=== PATIENT | male | born 1970 | race Caucasian/White ===

== ENCOUNTER 2016-11-09 11:35 | Observation (INO) | payer BC ==
[~2016-11-09] VITALS: Ht 170.2 cm; Wt 87.2 kg
[2016-11-09] VITALS (10 sets, daily range): BP systolic 100–179; BP diastolic 75–113; PULSE 60–80; RESP 17–20; TEMP 97.1–99.3; O2SAT 95–100
[2016-11-09] MEDS ORDERED: ASPIRIN 81 MG CHEW TAB PO ONE (12:00)
[2016-11-09] MEDS ORDERED: SODIUM CHLORIDE 0.9% FLUSH 10 ML FLUSH IVF PRN (12:00)
[2016-11-09] MEDS ORDERED: SODIUM CHLORID 0.9% 500 ML INJ 500 ML IV ONE (12:00)
[2016-11-09] MEDS: NITROGLYCERIN 0.4 MG SL 25 TABS/BTL SL SCH ×3 (12:10→12:27)
--- NOTE | 2016-11-09 12:32 | RADRPT ---
EXAM DATE/TIME: 11/09/2016 12:14 [place] COMPARISON: No previous studies available for comparison. INDICATIONS : Chest pain and shortness of breath. MEDICAL HISTORY : None. SURGICAL HISTORY : None. ENCOUNTER: Initial ACUITY: 1 day PAIN SCORE: 3/10 LOCATION: Bilateral chest Middle. FINDINGS: A single view of the chest demonstrates the lungs to be symmetrically aerated without evidence of mas s, infiltrate or effusion. The cardiomediastinal contours are unremarkable. Osseous structures are intact. CONCLUSION: No acute disease. Jeffery Brown MD on November 09, 2016 at 12:30 Board Certified Radiologist. This report was verified electronically.
[2016-11-09 12:35] LABS: AUTOMATED NEUTROPHIL # 3.4 TH/MM3 (1.8-7.7); BASOPHIL % 0.6 % (0.0-2.0); EOSINOPHIL # 0.1 TH/MM3 (0-0.4); EOSINOPHIL % 1.5 % (0.0-4.0); HEMATOCRIT 46.5 % (39.0-51.0); HEMO FLAGS DIFF FINAL; LYMPH % 49.7 % (9.0-44.0); LYMPHOCYTE # 4.1 TH/MM3 (1.0-4.8); MEAN CELL VOLUME 88.8 FL (80.0-100.0); MEAN CORPUSCULAR HEMOGLOBIN 30.1 PG (27.0-34.0); MEAN CORPUSCULAR HGB CONC 33.9 % (32.0-36.0); MONO % 6.8 % (0.0-8.0); NEUT % 41.4 % (16.0-70.0); PLATELET COUNT 182 TH/MM3 (150-450); RED BLOOD COUNT 5.24 MIL/MM3 (4.50-5.90); RED CELL DISTRIBUTION WIDTH 12.3 % (11.6-17.2); WHITE BLOOD COUNT 8.2 TH/MM3 (4.0-11.0)
[2016-11-09 12:45] LABS: CHLORIDE 106 MEQ/L (98-107); POTASSIUM 4.3 MEQ/L (3.5-5.1); SODIUM (NA) 139 MEQ/L (136-145)
[2016-11-09 12:49] LABS: ANION GAP 8 MEQ/L (5-15); BICARBONATE 24.8 MEQ/L (21.0-32.0); BLOOD UREA NITROGEN 13 MG/DL (7-18)
[2016-11-09 12:52] LABS: ALT (GPT) 49 U/L (12-78); AST (GOT) 23 U/L (15-37); GLOMERULAR FILTRATION RATE 80 ML/MIN (>89)
[2016-11-09 12:53] LABS: TOTAL BILIRUBIN ADULT 0.3 MG/DL (0.2-1.0)
[2016-11-09 12:55] LABS: ALKALINE PHOSPHATASE 58 U/L (45-117); CREATINE KINASE 115 U/L (39-308)
[2016-11-09 13:08] LABS: CKMB 0.9 NG/ML (0.5-3.6)
--- NOTE | 2016-11-09 13:47 | PD ---
HPI Chief Complaint: Chest Pain Time Seen by Provider: 11:55 Travel History International Travel<30 days: No Contact w/Intl Traveler<30days: No Traveled to known affect area: No History of Present Illness HPI So 46-year-old man who presents to the emergency department complaining of chest pain. States the pain started last night. He been feeling poorly about 2 weeks with shortness of breath and weakness and dizziness. States the pains in the mid chest, constant but actually waned a little bit since last night. Worse with any exertion. Not positional, not pleuritic. She's never had it before. He is a history of diabetes. He is a family history of early heart disease. No tobacco use. History Past Medical History Narrative Medical Diabetes Tetanus Vaccination: > 5 Years Influenza Vaccination: No Social History Alcohol Use: Yes (occassional) Tobacco Use: No Allergies-Medications (Allergen,Severity, Reaction): Coded Allergies: No Known Allergies (Unverified , 11/09/16) Reported Meds & Prescriptions Reported Meds & Active Scripts Active No Active Prescriptions or Reported Medications Review of Systems Except as stated in HPI: all other systems reviewed are Neg Physical Exam Narrative GENERAL: Well-appearing 46-year-old man, no acute distress. SKIN: Focused skin assessment warm/dry. NECK: Trachea midline. No JVD. CARDIOVASCULAR: Regular rate and rhythm. No murmur appreciated. RESPIRATORY: No accessory muscle use. Clear to auscultation. Breath sounds equal bilaterally. GASTROINTESTINAL: Abdomen soft, non-tender, nondistended. Hepatic and splenic margins not palpable. MUSCULOSKELETAL: No obvious deformities. No edema. NEUROLOGICAL: Awake and alert. No obvious cranial nerve deficits. Motor grossly within normal limits. Normal speech. PSYCHIATRIC: Appropriate mood and affect; insight and judgment normal. Data Data Last Documented VS Vital Signs Date Time Temp Pulse Resp B/P Pulse Ox O2 Delivery O2 Flow Rate FiO2 11/09/16 13:28 64 18 136/88 100 Nasal Cannula 2 11/09/16 11:45 98.2 Orders Electrocardiogram (11/09/16 11:56) Ckmb (Isoenzyme) Profile (11/09/16 11:56) Complete Blood Count With Diff (11/09/16 11:56) Comprehensive Metabolic Panel (11/09/16 11:56) Magnesium (Mg) (11/09/16 11:56) Troponin I (11/09/16 11:56) Lipase (11/09/16 11:56) Chest, Single Ap (11/09/16 11:56) Ecg Monitoring (11/09/16 11:56) Bilateral Bp Monitoring (11/09/16 11:56) Iv Access Insert/Monitor (11/09/16 11:56) Oximetry (11/09/16 11:56) Oxygen Administration (11/09/16 11:56) Aspirin Chew (Aspirin Chew) (11/09/16 12:00) Sodium Chloride 0.9% Flush (Ns Flush) (11/09/16 12:00) Nitroglycerin Sl (Nitrostat Sl) (11/09/16 12:00) Sodium Chlorid 0.9% 500 Ml Inj (Ns 500 M (11/09/16 12:00) CKMB (11/09/16 11:40) CKMB% (11/09/16 11:40) Labs Laboratory Tests Test 11/09/16 11:40 White Blood Count 8.2 TH/MM3 Red Blood Count 5.24 MIL/MM3 Hemoglobin 15.8 GM/DL Hematocrit 46.5 % Mean Corpuscular Volume 88.8 FL Mean Corpuscular Hemoglobin 30.1 PG Mean Corpuscular Hemoglobin 33.9 % Concent Red Cell Distribution Width 12.3 % Platelet Count 182 TH/MM3 Mean Platelet Volume 8.4 FL Neutrophils (%) (Auto) 41.4 % Lymphocytes (%) (Auto) 49.7 % Monocytes (%) (Auto) 6.8 % Eosinophils (%) (Auto) 1.5 % Basophils (%) (Auto) 0.6 % Neutrophils # (Auto) 3.4 TH/MM3 Lymphocytes # (Auto) 4.1 TH/MM3 Monocytes # (Auto) 0.6 TH/MM3 Eosinophils # (Auto) 0.1 TH/MM3 Basophils # (Auto) 0.0 TH/MM3 CBC Comment DIFF FINAL Differential Comment Sodium Level 139 MEQ/L Potassium Level 4.3 MEQ/L Chloride Level 106 MEQ/L Carbon Dioxide Level 24.8 MEQ/L Anion Gap 8 MEQ/L Blood Urea Nitrogen 13 MG/DL Creatinine 1.00 MG/DL Estimat Glomerular Filtration 80 ML/MIN Rate Random Glucose 97 MG/DL Calcium Level 8.8 MG/DL Magnesium Level 2.0 MG/DL Total Bilirubin 0.3 MG/DL Aspartate Amino Transf 23 U/L (AST/SGOT) Alanine Aminotransferase 49 U/L (ALT/SGPT) Alkaline Phosphatase 58 U/L Total Creatine Kinase 115 U/L Creatine Kinase MB 0.9 NG/ML Troponin I LESS THAN 0.02 NG/ML Total Protein 7.5 GM/DL Albumin 3.8 GM/DL Lipase 209 U/L MDM Medical Decision Making Medical Screen Exam Complete: Yes Emergency Medical Condition: Yes Interpretation(s) My review of EKG: Normal sinus rhythm at a rate of 69, normal axis, normal, no ischemia. LABS: CBC is unremarkable. CMP is unremarkable. Troponins negative. Lipase is normal. Chest x-ray: No acute disease. Differential Diagnosis ACS, pancreatitis, pleurisy, gastritis, hepatobiliary disease, other Narrative Course Medical decision-making 46 year wom man who presents emergency room complaining of chest pain. Symptoms are exertional in nature. There is no other clear explanation. Doesn' t diabetes. With symptoms strongly suggestive of ischemia, 2 risk factors, age greater than 45, use a heart score 4, moderate risk. I did discuss this with the patient he, while reluctant, is agreeable to stay for chest pain Center evaluation. Diagnosis Primary Impression: Chest pain Admitting Information Admitting Physician Requests: Observation Scripts No Active Prescriptions or Reported Meds Kevin Alarcon MD Nov 09, 2016 13:47
[2016-11-09] MEDS ORDERED: SODIUM CHLORIDE 0.9% FLUSH 10 ML FLUSH IV FLUSH PRN (14:00)
[2016-11-09] MEDS ORDERED: ONDANSETRON HCL 4 MG/2 ML VIAL IV PRN (14:00)
[2016-11-09] MEDS ORDERED: NITROGLYCERIN 0.4 MG SL 25 TABS/BTL SL PRN (14:00)
[2016-11-09] MEDS ORDERED: ACETAMINOPHEN 500 MG CPLT PO PRN (14:00)
[2016-11-09] MEDS ORDERED: MORPHINE SULFATE 4 MG/ML INJ IV PRN (14:00)
--- NOTE | 2016-11-09 14:35 | HHI.HP ---
[facility] No Primary Care Physician Admission Diagnosis chest pain Diagnoses: (1) Chest pain Diagnosis: Principal (2) ABERNATHY (dyspnea on exertion) Diagnosis: Principal (3) HTN (hypertension) Diagnosis: Principal Chief Complaint: chest pain, SOB History of Present Illness Written by Charlee Quinones PA-C acting as scribe for Dr. Rai on 11/09/16 at 1415. 46-year-old male with history of diet-controlled diabetes presents with complaint of chest pain and shortness of breath. Patient states he hasn't been feeling well for the past 2 weeks. He has had exertional shortness of breath with sweating and hot flashes.He states he had sweating and weakness last night and intense chest pain rating it an 8/10 at that time and states he couldn't breathe. He states he took heartburn medication without relief. Indicates pain in the mid chest with radiation of the right shoulder, but states the nitroglycerin completely relieved his pain. He states his blood pressure was elevated 198/120 and he rechecked it and it was still 160/108-110 at home. States he did have issues with hypertension in his 30s and was on medication but only short term. He denies any leg swelling. Review of Systems Except as stated in HPI: all other systems reviewed are Neg Past Family Social History Past Medical History Diet-controlled diabetes History of hypertension in his 30s Past Surgical History Back surgery Hemorrhoid surgery Reported Medications Reported Meds & Active Scripts Active No Active Prescriptions or Reported Medications Allergies: Coded Allergies: No Known Allergies (Unverified , 11/09/16) Family History Mother: Valve replacement due to rapid heart rate. Father: Chest pain, but no history of stents or CABG. Maternal grandfather: [place] and CABG in his 50s. Paternal grandmother: [place] in her 50s. Siblings: Healthy Social History Occasional alcohol use. Denies tobacco use. Denies illicit drug use. 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 Lives alone. Physical Exam Vital Signs Vital Signs Date Time Temp Pulse Resp B/P Pulse Ox O2 Delivery O2 Flow Rate FiO2 11/09/16 13:28 64 18 136/88 100 Nasal Cannula 2 11/09/16 13:03 97 Nasal Cannula 2 11/09/16 13:02 97 Nasal Cannula 2 11/09/16 13:00 61 18 126/75 97 Nasal Cannula 128/76 11/09/16 12:28 80 18 131/79 97 Room Air 2 11/09/16 11:50 79 95 Nasal Cannula 2 11/09/16 11:45 98.2 67 18 179/105 95 Physical Exam GENERAL: This is a well-nourished, well-developed patient, in no apparent distress. SKIN: No rashes, ecchymoses or lesions. Warm and dry. HEAD: Atraumatic. Normocephalic. EYES: No scleral icterus. No injection or drainage. NECK: Trachea midline. CHEST: Mildly reproducible R anterior chest wall tenderness, but patient states this feels different than pain he experienced earlier. CARDIOVASCULAR: Regular rate and rhythm without murmurs, gallops, or rubs. RESPIRATORY: Clear to auscultation. Breath sounds equal bilaterally. No wheezes , rales, or rhonchi. MUSCULOSKELETAL: No pain with lifting right arm. No lower extremity edema bilaterally. NEUROLOGICAL: Awake and alert. Motor grossly within normal limits. Normal speech. PSYCHIATRIC: Normal mood and affect. Laboratory Laboratory Tests Test 11/09/16 11:40 White Blood Count 8.2 Red Blood Count 5.24 Hemoglobin 15.8 Hematocrit 46.5 Mean Corpuscular Volume 88.8 Mean Corpuscular Hemoglobin 30.1 Mean Corpuscular Hemoglobin 33.9 Concent Red Cell Distribution Width 12.3 Platelet Count 182 Mean Platelet Volume 8.4 Neutrophils (%) (Auto) 41.4 Lymphocytes (%) (Auto) 49.7 Monocytes (%) (Auto) 6.8 Eosinophils (%) (Auto) 1.5 Basophils (%) (Auto) 0.6 Neutrophils # (Auto) 3.4 Lymphocytes # (Auto) 4.1 Monocytes # (Auto) 0.6 Eosinophils # (Auto) 0.1 Basophils # (Auto) 0.0 CBC Comment DIFF FINAL Differential Comment Sodium Level 139 Potassium Level 4.3 Chloride Level 106 Carbon Dioxide Level 24.8 Anion Gap 8 Blood Urea Nitrogen 13 Creatinine 1.00 Estimat Glomerular Filtration 80 Rate Random Glucose 97 Calcium Level 8.8 Magnesium Level 2.0 Total Bilirubin 0.3 Aspartate Amino Transf 23 (AST/SGOT) Alanine Aminotransferase 49 (ALT/SGPT) Alkaline Phosphatase 58 Total Creatine Kinase 115 Creatine Kinase MB 0.9 Troponin I LESS THAN 0.02 Total Protein 7.5 Albumin 3.8 Lipase 209 Result Diagram: 11/09/16 1140 11/09/16 1140 Imaging Last Impressions Chest X-Ray 11/09/16 1156 Signed Impressions: Service Date/Time: October 12:14 - CONCLUSION: No acute disease. Jeffery Brown MD Assessment and Plan Assessment and Plan 46-year-old male with: Chest pain and ABERNATHY: Associated with sweating and weakness. EKGs 2 personally interpreted with normal sinus rhythm and no evidence of ischemia. Troponin less than 0.02. Chest x-ray normal; no evidence of cardiomegaly, effusion, or infiltrate. No lower extremity edema on exam. -Serial EKGs and enzymes -325 mg by mouth aspirin daily -Nitroglycerin/Morphine for chest pain -Telemetry -D-dimer ordered -Likely will perform treadmill test in the morning provided EKGs and enzymes remain normal. HTN: BP 179/105 on arrival; elevated at home. BP improved after nitro. -Clonidine prn Diet controlled DM: BGL well controlled at 97. DVT prophylaxis: SCDs. Discussed Condition With ED physician Medical Decision Making Impression and Plan The exam, history, and the medical decision-making described in the above note were mine and completed with the scribe. I reviewed and agree with the findings presented. I attest that I had a [id number] encounter with the patient on the same day, and personally performed and documented my assessment and findings in the medical record. Charlee Quinones Nov 09, 2016 14:35 Rox Rai MD Nov 09, 2016 18:18
[2016-11-09] MEDS ORDERED: cloNIDine HCL 0.1 MG TAB PO PRN (15:15)
[2016-11-09 15:26] LABS: CREATINE KINASE 99 U/L (39-308)
[2016-11-09 19:12] LABS: CREATINE KINASE 94 U/L (39-308)
[2016-11-09] MEDS: SODIUM CHLORIDE 0.9% FLUSH 10 ML FLUSH IV FLUSH SCH (21:00)
[2016-11-10] VITALS: BP 139/84; PULSE 58; RESP 20; TEMP 96.9; O2SAT 97
[2016-11-10 04:00] VITALS: BP 135/82; PULSE 58; RESP 20; TEMP 96.3; O2SAT 99
[2016-11-10 07:31] VITALS: O2SAT 96
--- NOTE | 2016-11-10 07:48 | HHI.PR ---
Subjective Remarks Follow-up for chest pain and dyspnea on exertion. Patient states he did have some recurrence of chest pain last night around 11pm-12am over the center of his chest, describes it as "tightness", mild, rating it a 2/10 and states it was hard to breathe. He states it lasted less than an hour and resolved spontaneously. He did not receive any medication. He denies any diaphoresis or vomiting at that time. He denies any chest pain or shortness of breath currently. Denies any lightheadedness or dizziness currently. Objective Vitals Vital Signs Date Time Temp Pulse Resp B/P Pulse Ox O2 Delivery O2 Flow Rate FiO2 11/10/16 07:31 96 21 11/10/16 04:00 96.3 58 20 135/82 99 11/10/16 00:00 96.9 58 20 139/84 97 11/09/16 23:00 60 11/09/16 20:00 97.1 63 20 141/94 96 11/09/16 19:24 95 21 11/09/16 16:00 97.6 63 18 153/113 98 11/09/16 16:00 98 21 11/09/16 16:00 99.3 67 17 100/80 95 11/09/16 14:40 68 18 143/98 98 Nasal Cannula 2 11/09/16 13:28 64 18 136/88 100 Nasal Cannula 2 11/09/16 13:03 97 Nasal Cannula 2 11/09/16 13:02 97 Nasal Cannula 2 11/09/16 13:00 61 18 126/75 97 Nasal Cannula 128/76 11/09/16 12:28 80 18 131/79 97 Room Air 2 11/09/16 11:50 79 95 Nasal Cannula 2 11/09/16 11:45 98.2 67 18 179/105 95 I/O 11/09/16 11/09/16 11/09/16 11/10/16 11/10/16 11/10/16 07:00 15:00 23:00 07:00 15:00 23:00 Intake Total 1200 ml 480 ml 0 ml Balance 1200 ml 480 ml 0 ml Intake Oral 480 ml 0 ml IV Total 1200 ml # Voids 3 2 # Bowel Movements 0 0 Result Diagram: 11/09/16 1140 11/09/16 1140 Objective Remarks GENERAL: Well-nourished, well-developed male in no apparent distress. SKIN: Warm and dry. HEAD: Atraumatic. Normocephalic. EYES: No scleral icterus. No injection or drainage. CARDIOVASCULAR: Normal rate and regular rhythm. No murmurs, gallops, or rubs sitting or supine. RESPIRATORY: No accessory muscle use. Clear to auscultation. Breath sounds equal bilaterally. GASTROINTESTINAL: Normoactive bowel sounds. Abdomen soft, non-tender, nondistended. No guarding. MUSCULOSKELETAL: No lower extremity edema or calf pain bilaterally. NEUROLOGICAL: Awake and alert. Motor grossly within normal limits. Five out of 5 muscle strength in bilateral arms and legs. Normal speech. PSYCHIATRIC: Appropriate mood and affect; insight and judgment normal. Urinary Catheter: No Vascular Central Line Catheter: No A/P Problem List: (1) Chest pain ICD Code: R07.9 Status: Acute (2) ABERNATHY (dyspnea on exertion) ICD Code: R06.09 Status: Acute (3) HTN (hypertension) ICD Code: I10 Status: Acute Assessment and Plan 46-year-old male with: Chest pain on exertion and ABERNATHY: Associated with sweating and weakness. EKGs 3 personally interpreted with normal sinus rhythm and no evidence of ischemia. Troponin x 3 less than 0.02. Chest x-ray normal; no evidence of cardiomegaly, effusion, or infiltrate. Lungs clear. No lower extremity edema on exam. No evidence of CHF. No murmurs on exam. Concern for ischemia. Recurrence of pain last night but self resolved. -D-dimer negative -325 mg by mouth aspirin daily -Nitroglycerin/Morphine for chest pain -Telemetry -Treadmill test ordered. Patient to remain NPO. -Discussed with Dr. Gutierrez, attending, who advises Echo to rule out valvular dysfunction. HTN: BP 179/105 on arrival; elevated at home. BP improved after nitro. -Clonidine prn -BP remained good overnight. Diet controlled DM: BGLs well controlled. DVT prophylaxis: SCDs. ETT was personally conducted. Patient had good exercise tolerance with no chest pain on exertion or abnormal dyspnea on exertion. ETT was normal as also reviewed by Dr. 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 Echo was performed but results pending. Patient later informed me that he has been under a lot of stress and was wondering if that could be the cause. He was informed that stress/anxiety is a possible differential and could be the cause of his chest pain. He is advised to eat healthy, get plenty of rest, and exercise to decrease his stress. Discharge disposition: Home in fair condition. Activity: Regular. Diet: Diabetic. Medications: None. Follow-up: PCP 1 week. I have informed [facility] nurse to follow up on Echo results. Charlee Quinones Nov 10, 2016 07:47
[2016-11-10 08:00] VITALS: BP 153/94; PULSE 68; RESP 18; TEMP 97.1; O2SAT 95
[2016-11-10] MEDS: SODIUM CHLORIDE 0.9% FLUSH 10 ML FLUSH IV FLUSH SCH (08:08)
[2016-11-10 08:17] VITALS: PULSE 59
[2016-11-10] MEDS ORDERED: ASPIRIN 325 MG TAB PO SCH (09:00)
--- NOTE | 2016-11-10 11:03 | TR ---
Date Performed: 11/10/2016 Time Performed: 08:54:00 DOCTOR: Juancarlos Salgado DRUG LIST: CLINICAL HISTORY: REASON FOR TEST: Chest pain REASON FOR ENDING: OBSERVATION: CONCLUSION: Patient tolerated SRINI protocol with Total Exercise Time=9:53 Maximum SK=070 % Max HR Achieved=86.0% Maximum WH=079/85. Testing stopped secondary to goal achieved. Patient had no chest pain or arm pain during testing. No excessive SOB, just normal response to exercise. HR and BP appro priately responded to exercise. Occasional PVCs. HR and BP recovered appropriately. COMMENTS: Conclusion: Normal treadmill exercise. No evidence of ischemia.
--- NOTE | 2016-11-10 14:38 | HHI.DCPOC ---
Discharge Care Plan Diagnosis: (1) Chest pain (2) ABERNATHY (dyspnea on exertion) (3) HTN (hypertension) Your Health Problems Are: Chest Pain Shortness of Breath Goals to Promote Your Health * To prevent worsening of your condition and complications * To maintain your health at the optimal level Directions to Meet Your Goals Take your medications as prescribed Follow your dietary instruction Follow activity as directed Keep your appointments as scheduled Take your immunizations and boosters as scheduled If your symptoms worsen call your PCP, if no PCP go to Urgent Care Center or Emergency Room Smoking is Dangerous to Your Health. Avoid second hand smoke Call the 24-hour hour crisis hotline for domestic abuse at Charlee Quinones Nov 10, 2016 14:38
[2016-11-10 14:45] VITALS: BP 133/93
--- NOTE | 2016-11-10 15:24 | EKG ---
Date Performed: 11/09/2016 Time Performed: 18:19:41 PTAGE: 46 years EKG: Sinus rhythm NORMAL ECG PREVIOUS TRACING : 11/09/2016 14.16 Since previous tracing, no significant change noted DOCTOR: Juancarlos Salgado Interpretating Date/Time 11/10/2016 15:23:35
--- NOTE | 2016-11-10 15:26 | EKG ---
Date Performed: 11/09/2016 Time Performed: 14:16:07 PTAGE: 46 years EKG: Sinus rhythm NORMAL ECG Since PREVIOUS TRACING , no significant change noted DOCTOR: Juancarlos Salgado Interpretating Date/Time 11/10/2016 15:24:37
--- NOTE | 2016-11-10 15:27 | EKG ---
Date Performed: 11/09/2016 Time Performed: 11:44:50 PTAGE: 46 years EKG: Sinus rhythm NORMAL ECG INTERPRETATION BASED ON A DEFAULT AGE OF 40 YEARS NO PREVIOUS TRACING DOCTOR: Juancarlos Salgado Interpretating Date/Time 11/10/2016 15:25:21
--- NOTE | 2016-11-10 20:04 | ECHRPT ---
Indication: Shortness of breath CONCLUSIONS Normal left ventricular size and wall thickness. The left ventricular systolic function is normal wi th an estimated ejection fraction in the range of 50-55%. Left ventricular diastolic function parameters a re normal. The pulmonary valve is not well visualized. The transthoracic study is normal by two-dimensional, color flow imaging and Doppler interrogation. BP: / HR: Rhythm: Sinus MEASUREMENTS (Male / Female) Normal Values Technical Quality:Good 2D ECHO LV Diastolic Diameter PLAX 4.6 cm 4.2 - 5.9 / 3.9 - 5.3 cm LV Systolic Diameter PLAX 3.6 cm IVS Diastolic Thickness 1.0 cm 0.6 - 1.0 / 0.6 - 0.9 cm LVPW Diastolic Thickness 0.7 cm 0.6 - 1.0 / 0.6 - 0.9 cm LV Relative Wall Thickness 0.4 RV Internal Dim ED PLAX 2.4 cm LA Systolic Diameter LX 3.2 cm 3.0 - 4.0 / 2.7 - 3.8 cm DOPPLER Mitral E Point Velocity 74.5 cm/s Mitral A Point Velocity 55.3 cm/s Mitral E to A Ratio 1.3 TR Peak Velocity 214.0 cm/s TR Peak Gradient 18.3 mmHg FINDINGS LEFT VENTRICLE Normal left ventricular size and wall thickness. The left ventricular systolic function is normal wi th an estimated ejection fraction in the range of 50-55%. Left ventricular diastolic function parameters a re normal. RIGHT VENTRICLE Normal right ventricular size and systolic function. LEFT ATRIUM The left atrial size is normal. RIGHT ATRIUM The right atrial size is normal. ATRIAL SEPTUM Normal atrial septal thickness without atrial level shunting by limited color doppler interrogation. AORTA The aortic root and proximal ascending aorta are normal in size on limited imaging. MITRAL VALVE Structurally normal mitral valve. No mitral valve stenosis or regurgitation. AORTIC VALVE Trileaflet aortic valve. No aortic valve stenosis or regurgitation. TRICUSPID VALVE Structurally normal tricuspid valve. No tricuspid valve stenosis or regurgitation. PULMONARY VALVE The pulmonary valve is not well visualized. VESSELS The inferior vena cava is normal in size. PERICARDIUM No pericardial effusion. Jen Mckeon MD, FACC (Electronically Signed) Final Date:10 November 2016 20:03
== END 2016-11-10 15:17 | disposition home or self-care (01) ==
LOC: PHED 11:35 → PHEDA 13:53 → PH3B 14:50
PROVIDERS: ADMIT Hospitalist; ATTEND Hospitalist
DX: R07.89 Other chest pain (principal); R06.09 Other forms of dyspnea; I10 Essential (primary) hypertension; E11.9 Type 2 diabetes mellitus without complications; R06.02 Shortness of breath
CPT/HCPCS: 71010; 80053; 82550; 82552; 82948; 83690; 83735; 84484; 85025; 85379; 93005; 93017; 93306; 96360; 99285; G0378; J7040